=== PATIENT | female | born 1970 | race Asian ===

== ENCOUNTER 2018-05-06 17:26 | Observation (INO) ==
--- NOTE | 2018-05-06 18:00 | ED ---
HPI General Chief Complaint: Chest Pain Stated Complaint: Chest pain Time Seen by Provider: 05/06/18 18:01 Source: patient Mode of arrival: EMS Limitations: language barrier History of Present Illness HPI narrative: Mandarin speaking patient, apparently during while he was at work she started to feel her heart beating very fast and then she started to feel numbness to her legs and dizziness. She also started to complain of pain to both of her ankles as well as this midsternal chest pain this all started approximately 45 minutes prior to arrival and at best rates it a 7 out of 10 originally currently is down to 2 or 3 out of 10 the patient took aspirin to 81 mg prior to arrival. Difficult to obtain full history due to patient's language barrier despite using [employer] is very difficult to get a straight answer such as when asking about past medical history patient starts talking all about her current history and not talking about any previous past medical history is past surgical history. So my past medical history and past surgical history is incomplete due to poor translation and poor understanding on the patient's part MD complaint: chest pain Related Data Home Medications Medication Instructions Recorded Confirmed aspirin 162 mg PO DAILY 05/06/18 05/06/18 Allergies Allergy/AdvReac Type Severity Reaction Status Date / Time No Known Allergies Allergy Verified 05/06/18 17:39 Review of Systems ROS: all other systems reviewed are negative PMFSH History History Provided By: Patient and Family Member Medical History Medical History Ankle pain, chronic (Acute) Surgical history unknown (Acute) Poor circulation (Acute) Social History Social History Substance History: No History of Abuse Second Hand Smoke Exposure: No Smoking Status: Never smoker How Often Do You Have a Drink Containing Alcohol: Monthly or less Recent Travel in [facility] within the Last 8 Weeks: No Recent Out of Country Travel within the Last 8 Weeks: No Immunization History Tetanus Immunization: Unsure Hx Influenza Vaccine This Season: No Exam Narrative Exam Narrative: GENERAL: Well-nourished, well-developed patient in no apparent distress. SKIN: Warm and dry. HEAD: Atraumatic. Normocephalic. EYES: Pupils equal and round. No scleral icterus. No injection or drainage. ENT: No nasal bleeding or discharge. Mucous membranes pink and moist. NECK: Trachea midline. No JVD. CARDIOVASCULAR: Regular rate and rhythm. no rubs or gallops RESPIRATORY: No accessory muscle use. Clear to auscultation. Breath sounds equal bilaterally. GASTROINTESTINAL: Abdomen soft, non-tender, nondistended. No rebound or guarding MUSCULOSKELETAL: Extremities without clubbing, cyanosis, or edema. No obvious deformities. NEUROLOGICAL: Awake and alert. No obvious cranial nerve deficits. Motor grossly within normal limits. Five out of 5 muscle strength in the arms and legs. Normal speech. PSYCHIATRIC: Appropriate mood and affect; insight and judgment normal. Course Initial Documented Vital Signs Temperature 98.0 F 05/06/18 17:31 Pulse Rate 96 H 05/06/18 17:31 Respiratory Rate 20 05/06/18 17:31 Blood Pressure 127/73 05/06/18 17:31 Pulse Oximetry 100 05/06/18 17:31 Last Documented Vital Signs Temperature 98 F 05/06/18 17:37 Pulse Rate 80 05/06/18 17:37 Respiratory Rate 18 05/06/18 17:37 Blood Pressure 136/82 05/06/18 17:37 Pulse Oximetry 100 05/06/18 17:37 Medical Decision Making MDM Narrative Medical decision making narrative: Chest x-ray read by radiologist as negative First set of cardiac enzymes negative No leukocytosis no anemia no left shift Electrolytes are all within normal limits with the exception of mild hypokalemia 3.1 Normal liver and pancreatic functions Ultrasound of bilateral lower extremities are negative for DVT Medical Screen Exam Complete: Yes Emergency Medical Condition: Yes Differential Diagnosis Differential Diagnosis: GA versus pulmonary edema versus pulmonary embolus versus pericardial effusion versus DVT Medical Records Medical records reviewed: Yes I reviewed the patient's medical records. Lab Data Lab results reviewed: Yes I reviewed the patient's lab results. Result diagrams: 05/06/18 18:05/06/18 18:08 Lab Results 05/06/18 05/06/18 05/06/18 Range/Units 18:08 18:08 18:08 WBC 4.8 (4.0-11.0) th/mm3 RBC 4.23 (4.00-5.30) mil/mm3 Hgb 13.0 (11.6-15.3) gm/dL Hct 39.1 (35.0-46.0) % MCV 92.3 (80.0-100.0) fL MCH 30.6 (27.0-34.0) pg MCHC 33.2 (32.0-36.0) % RDW 13.4 (11.6-17.2) % Plt Count 163 (150-450) th/mm3 MPV 10.4 (7.0-11.0) fL Neut % (Auto) 55.5 (16.0-70.0) % Lymph % (Auto) 36.2 (9.0-44.0) % Schley % (Auto) 7.5 (0.0-8.0) % Eos % (Auto) 0.5 (0.0-4.0) % Baso % (Auto) 0.3 (0.0-2.0) % Neut # (Auto) 2.7 (1.8-7.7) th/mm3 Lymph # (Auto) 1.7 (1.0-4.8) th/mm3 Schley # (Auto) 0.4 (0.0-0.9) th/mm3 Eos # (Auto) 0.0 (0.0-0.4) th/mm3 Baso # (Auto) 0.0 (0.0-0.2) th/mm3 WBC Differential . Differential Comment Auto diff final Sodium 141 (136-145) meq/L Potassium 3.1 L (3.5-5.1) meq/L Chloride 108 H (98-107) meq/L Carbon Dioxide 20.5 L (21.0-32.0) meq/L Anion Gap 13 (5-15) meq/L BUN 12 (7-18) mg/dL Creatinine 0.75 (0.50-1.00) mg/dL Estimated GFR 82 L (>89) mL/min Random Glucose 106 (74-106) mg/dL Calcium 8.4 L (8.5-10.1) mg/dL Total Bilirubin 0.7 (0.2-1.0) mg/dL AST 17 (15-37) U/L ALT 22 (10-53) U/L Alkaline Phosphatase 46 (45-117) U/L Total Creatine Kinase 128 (26-192) U/L CK-MB (CK-2) 1.2 (0.5-3.6) ng/mL Troponin I Less than 0.02 L (0.02-0.05) ng/mL B-Natriuretic Peptide 19 (0-100) pg/mL Total Protein 7.4 (6.4-8.2) g/dL Albumin 3.9 (3.4-5.0) g/dL Lipase 68 L (73-393) U/L Imaging Data Radiologist's impression: Chest X-Ray 05/06/18 18:01 CONCLUSION: The lungs are clear. ECG Data EKG Prior to Arrival: No Attestation: I personally reviewed and interpreted this ECG as follows: Prior ECG tracings: not available for review Interpretation: Although the patient was seen in February 2018 I am unable to bring up and visualize her previous EKG, I was able to see her previous stress test and echocardiogram both of which were negative/within normal limits. Discharge Plan Discharge Disposition Patient Disposition: 30 Still Patient Discharge Condition Condition: Fair Discharge Details Diagnosis: Chest pain Physicians Team ED Provider: Roldan Burch Primary Care Provider: UNKNOWN, Rxs /Orders / Referrals /Forms Prescriptions: No Action aspirin 81 mg Tablet,Chewable 162 mg PO DAILY RF: 0 Discharge Interventions Interventions: Vital Signs Last Done: 05/06/18 17:37 Status ED Status: With Doctor
[2018-05-06 18:24] LABS: Baso % (Auto) 0.3 % (0.0-2.0); Eos % (Auto) 0.5 % (0.0-4.0); Hematocrit 39.1 % (35.0-46.0); Lymph # (Auto) 1.7 th/mm3 (1.0-4.8); Lymph % (Auto) 36.2 % (9.0-44.0); Mean Corpuscular HGB Conc 33.2 % (32.0-36.0); Mean Corpuscular Hemoglobin 30.6 pg (27.0-34.0); Mean Corpuscular Volume 92.3 fL (80.0-100.0); Mean Platelet Volume 10.4 fL (7.0-11.0); Mono # (Auto) 0.4 th/mm3 (0.0-0.9); Mono % (Auto) 7.5 % (0.0-8.0); Neut # (Auto) 2.7 th/mm3 (1.8-7.7); Neut % (Auto) 55.5 % (16.0-70.0); Platelet Count 163 th/mm3 (150-450); Red Blood Count 4.23 mil/mm3 (4.00-5.30); Red Cell Distribution Width 13.4 % (11.6-17.2); White Blood Count 4.8 th/mm3 (4.0-11.0)
--- NOTE | 2018-05-06 18:37 | XR ---
EXAM DATE: 05/06/2018 6:01 PM EDT AGE/SEX: 47 years / Female INDICATIONS: Short of breath. CLINICAL DATA: This is the patient's initial encounter. Patient reports that signs and symptoms have been present for 2 months and indicates a pain score of 0/10. MEDICAL/SURGICAL HISTORY: None. None. COMPARISON: [facility] [place] & LAT, 02/27/2016. . FINDINGS: A single AP view of the chest demonstrates the lungs to be symmetrically aerated without evidence of mass, infiltrate or effusion. The cardiomediastinal contours are unremarkable. Osseous structures a re intact. CONCLUSION: The lungs are clear. Electronically signed by: Eloy Mckeon MD 05/06/2018 6:36 PM EDT
[2018-05-06 18:44] LABS: Alanine Aminotransferase 22 U/L (10-53); Albumin 3.9 g/dL (3.4-5.0); Anion Gap 13 meq/L (5-15); Aspartate Aminotransferase 17 U/L (15-37); Blood Urea Nitrogen 12 mg/dL (7-18); Calcium 8.4 mg/dL (8.5-10.1); Carbon Dioxide 20.5 meq/L (21.0-32.0); Chloride 108 meq/L (98-107); Glomerular Filtration Rate 82 mL/min (>89); Glucose,Random 106 mg/dL (74-106); Lipase 68 U/L (73-393); Potassium 3.1 meq/L (3.5-5.1); Sodium 141 meq/L (136-145)
[2018-05-06 18:49] LABS: Alkaline Phosphatase 46 U/L (45-117); Creatine Kinase 128 U/L (26-192); Total Protein 7.4 g/dL (6.4-8.2)
[2018-05-06 19:01] LABS: Creatine Kinase MB 1.2 ng/mL (0.5-3.6)
[2018-05-06] MEDS ORDERED: Morphine Inj 4 MG/ML Vial IV.PUSH PRN (19:15)
--- NOTE | 2018-05-06 19:20 | US ---
EXAM DATE: 05/06/2018 6:01 PM EDT AGE/SEX: 47 years / Female INDICATIONS: Bilateral leg swelling. CLINICAL DATA: This is the patient's initial encounter. Patient reports that signs and symptoms have been present for 1 day and indicates a pain score of 5/10. MEDICAL/SURGICAL HISTORY: . Ankle pain. None. COMPARISON: No prior exams available for comparison. TECHNIQUE: Venous ultrasound of both lower extremities was performed from the inguinal ligament to t he proximal calf. Real-time, color Doppler and spectral tracing, compression and augmentation techni ques were used. FINDINGS: Right Leg: Normal compression of the deep venous system from the inguinal region to the proximal jose alfredo f. No echogenic clot is seen. Normal response of the venous system to augmentation and respiration. Left Leg: Normal compression of the deep venous system from the inguinal region to the proximal calf . No echogenic clot is seen. Normal response of the venous system to augmentation and respiration. Other: None. CONCLUSION: 1. The study is negative for bilateral lower extremity deep venous thrombosis. Electronically signed by: Eloy Mckeon MD 05/06/2018 7:19 PM EDT
[2018-05-06 20:01] LABS: Bilirubin,Urine Negative (Negative); Clarity,Urine Clear (Clear); Color,Urine Straw (Yellw/Straw); Glucose,Urine (UA) Negative (Negative); Leukocyte Esterase,Urine Negative (Negative); Mucus,Urine Few /lpf (Occasional); Nitrite,Urine Negative (Negative); Specific Gravity,Urine 1.005 (1.002-1.035); Squamous Epithelial Cell,Urine 1 /hpf (0-5)
[2018-05-06 20:05] LABS: Amphetamine Screen,Urine Neg (Neg); Barbiturate Screen,Urine Neg (Neg); Cannabinoid Screen,Urine Neg (Neg); Cocaine Screen,Urine Neg (Neg); Opiate Screen,Urine Neg (Neg)
[2018-05-06] MEDS: Famotidine 20 MG Tablet PO SCH (21:44)
[2018-05-06] MEDS: Sod Chloride 0.9% Inj 1,000 ML IV.CONT SCH (21:56)
[2018-05-06 22:09] LABS: Troponin I 0.02 ng/mL (0.02-0.05)
--- NOTE | 2018-05-06 22:16 | CT ---
EXAM DATE: 05/06/2018 8:39 PM EDT AGE/SEX: 47 years / Female INDICATIONS: Midsternal chest pain. CLINICAL DATA: This is the patient's initial encounter. Patient reports that signs and symptoms have been present for 1 day and indicates a pain score of 4/10. MEDICAL/SURGICAL HISTORY: None. None. RADIATION DOSE: 11.78 CTDI (mGy) COMPARISON: No prior exams available for comparison. TECHNIQUE: Volumetric scanning was performed using a multi-row detector CT scanner during bolus infu radha of 75 ml Omnipaque 350 (iohexol) nonionic water-soluble contrast as a single exam dose. The ann a was post processed with a variety of visualization algorithms including full volume maximum intensi ty projection and sliding thin slab reformation. Using automated exposure control and adjustment of t he mA and/or kV according to patient size, radiation dose was kept as low as reasonably achievable to obtain optimal diagnostic quality images. DICOM format image data is available electronically for r eview and comparison. FINDINGS: Pulmonary Arteries: No filling defects are seen in the pulmonary arteries out to the subsegmental ve ssels. The left and right pulmonary arteries are normal in diameter. Lung: No infiltrates seen. Effusion: None. Mediastinum: No evidence of mediastinal or hilar adenopathy. Other: The axilla is unremarkable. CONCLUSION: 1. The study is negative for pulmonary embolism. Electronically signed by: Eloy Mckeon MD 05/06/2018 10:15 PM EDT
--- NOTE | 2018-05-06 22:21 | ECG ---
Date Performed: 05/06/2018 Time Performed: 20:37:53 PTAGE: 47 years EKG: Sinus rhythm NORMAL ECG PREVIOUS TRACING : 05/06/2018 17.34 Since the previous tracing, no significant change noted DOCTOR: Edgar Corral Interpretating Date/Time 05/06/2018 22:20:12
--- NOTE | 2018-05-06 22:30 | ECG ---
Date Performed: 05/06/2018 Time Performed: 17:34:18 PTAGE: 47 years EKG: Sinus rhythm POSSIBLE INFERIOR MYOCARDIAL INFARCTION BORDERLINE ECG PREVIOUS TRACING : 02/27/2016 23.19 Since the previous tracing, no significant change noted DOCTOR: Edgar Corral Interpretating Date/Time 05/06/2018 22:29:12
[2018-05-07 00:31] VITALS: O2SAT 99
[2018-05-07 01:22] LABS: Creatine Kinase 91 U/L (26-192)
[2018-05-07] MEDS: Sod Chloride 0.9% Inj 1,000 ML IV.CONT SCH (06:29)
[2018-05-07 07:33] VITALS: RESP 20
[2018-05-07] MEDS: Famotidine 20 MG Tablet PO SCH (08:15)
--- NOTE | 2018-05-07 08:53 | P.HPCA ---
History of Present Illness Primary Care Physician: UNKNOWN Chief Complaint: Palpations History of Present Illness: 47 year old Mandarin speaking female presents to ER for further evaluation of palpations. Onset yesterday afternoon. Describes sensation of irregular, fast heart beat with associated shortness of breath and dizziness. Duration 30-60 minutes. No chest discomfort. Denies similar sensation in the past. No known hypertension, hyperlipidemia, coronary artery disease, or diabetes. No nausea, vomiting, or diaphoresis. No recent illness, fever, or injury. Past cardiac testing 02/28/16 ETT-felt to be non-ischemic, walked 2:12 minutes. Social history No known hypertension, hyperlipidemia, or diabetes. Lifelong non-smoker. No alcohol or drug use. Family history Noncontributory for early onset cardiovascular disease - Diagnosis (1) Palpitations (2) Hypokalemia Review of Systems All other systems reviewed negative except as stated in HPI [facility] [place] - History History Provided By: Patient, Family Member - Medical History Medical History: Medical History (Last Reviewed 05/06/18 @ 18:28 by Roldan Burch) Ankle pain, chronic Surgical history unknown - Tobacco History Second Hand Smoke Exposure: No Tobacco Use In Past 30 Days: No Smoking Status: Never smoker - Alcohol History How Often Do You Have a Drink Containing Alcohol: Monthly or less - Substance Use History Substance History: No History of Abuse - Travel History Recent Travel in the [place] Within the Last 8 Weeks: No Recent Travel Out of the Country Within the Last 8 Weeks: No - Immunization History Tetanus Immunization: Unsure Hx Influenza Vaccine This Season: No Medications and Allergies Active Medications: Active Medications Hydrocodone Bitart/Acetaminophen ([place] 7.5/325) 1 tab PO Q4H PRN PRN Reason: PAIN SCALE 1 TO 7 Famotidine (Pepcid) 20 mg PO BID [facility] Last Admin: 05/07/18 08:15 Dose: 20 mg Sodium Chloride (Ns Inj) 1,000 mls @ 100 mls/hr IV.CONT .Q10H [facility] Last Admin: 05/07/18 06:29 Dose: 100 mls/hr Morphine Sulfate (Morphine Inj) 2 mg IV.PUSH Q4H PRN PRN Reason: PAIN SCALE 8 TO 10 Nitroglycerin (Nitrostat Sl) 0.4 mg SL Q5M PRN PRN Reason: CHEST PAIN Ondansetron HCl (Zofran Inj) 4 mg IV.PUSH Q6H PRN PRN Reason: NAUSEA Sodium Chloride (Ns Flush) 2 ml IV.FLUSH UNSCH PRN PRN Reason: FLUSH AFTER USING IV ACCESS Sodium Chloride (Ns Flush) 2 ml IV.FLUSH BID [facility] Last Admin: 05/07/18 08:18 Dose: Not Given Sodium Chloride (Ns Flush) 2 ml IV.FLUSH PRN PRN PRN Reason: FLUSH AFTER USING IV ACCESS Allergies Allergy/AdvReac Type Severity Reaction Status Date / Time No Known Allergies Allergy Verified 05/06/18 17:39 Home Medications Medication Instructions Recorded Confirmed Type aspirin 162 mg PO DAILY 05/06/18 05/06/18 History Exam Vital signs: Vital Signs 05/06/18 17:31 05/06/18 17:37 05/06/18 19:18 Temperature 98.0 F 98 F Pulse Rate 96 H 80 Respiratory Rate 20 18 Blood Pressure 127/73 136/82 Pulse Oximetry 100 100 100 05/06/18 19:42 05/06/18 20:00 05/07/18 00:00 Temperature 98.0 F 97.9 F Pulse Rate 63 70 64 Respiratory Rate 15 16 16 Blood Pressure 115/68 110/67 116/67 Pulse Oximetry 96 99 99 05/07/18 04:00 05/07/18 07:30 Temperature 97.7 F 97.8 F Pulse Rate 63 62 Respiratory Rate 16 20 Blood Pressure 111/59 L 114/62 Pulse Oximetry 99 99 Intake & Output 05/06/18 05/07/18 05/07/18 18:59 06:59 18:59 Intake Total 1000 / 1000 Balance 1000 / 1000 Weight 65.771 kg 65.8 kg Intake: IV 1000 / 1000 NS Inj 1,000 ML @ 100 mls/hr IV 1000 / 1000 .CONT .Q10H [facility] Rx#:[id number] Narrative: GENERAL: Alert WN, WD, NAD, pleasant, female HEAD: NC, AT EYES: Sclera clear, conjunctiva without injection, pupils equal and round ENT: Mucous membranes pink and moist CV: RRR, without murmur, rub, gallop, no JVD, S1-S2 no S3-S4. No carotid bruits RESP: Clear lungs throughout bilateral, no crackles, wheeze, rhonchi, symmetrical chest rise, nonlabored, able to speak in full sentences ABD: Soft, NT, ND, no masses, positive bowel tones EXT: Pulses +2x4, no dependent edema MS: Normal tone x4 extremities, nontender, no obvious deformities, full range of motion NEURO: CN II through CN XII grossly intact, motor strength 5/5 PSYCH: A+O x3, pleasant affect, appropriate speech, mood, insight and judgment SKIN: Normal turgor, normal texture, no lesions, no rashes, brisk cap refill, even hair distribution, few scattered bilateral lower extremities small bruises Results 05/06/18 18:08 05/06/18 18:08 Cardiac Enzymes 05/06/18 05/06/18 05/06/18 Range/Units 18:08 18:08 20:30 AST 17 (15-37) U/L CK-MB (CK-2) 1.2 (0.5-3.6) ng/mL Troponin I Less than 0.02 L 0.02 (0.02-0.05) ng/mL B-Natriuretic Peptide 19 (0-100) pg/mL 05/07/18 Range/Units 00:40 AST (15-37) U/L CK-MB (CK-2) (0.5-3.6) ng/mL Troponin I Less than 0.02 L (0.02-0.05) ng/mL B-Natriuretic Peptide (0-100) pg/mL Coagulation 05/06/18 Range/Units 18:08 B-Natriuretic Peptide 19 (0-100) pg/mL CBC 05/06/18 Range/Units 18:08 WBC 4.8 (4.0-11.0) th/mm3 RBC 4.23 (4.00-5.30) mil/mm3 Hgb 13.0 (11.6-15.3) gm/dL Hct 39.1 (35.0-46.0) % Plt Count 163 (150-450) th/mm3 Neut # (Auto) 2.7 (1.8-7.7) th/mm3 Lymph # (Auto) 1.7 (1.0-4.8) th/mm3 Barnes # (Auto) 0.4 (0.0-0.9) th/mm3 Eos # (Auto) 0.0 (0.0-0.4) th/mm3 Baso # (Auto) 0.0 (0.0-0.2) th/mm3 Comprehensive Metabolic Panel 05/06/18 Range/Units 18:08 Sodium 141 (136-145) meq/L Potassium 3.1 L (3.5-5.1) meq/L Chloride 108 H (98-107) meq/L Carbon Dioxide 20.5 L (21.0-32.0) meq/L BUN 12 (7-18) mg/dL Creatinine 0.75 (0.50-1.00) mg/dL Calcium 8.4 L (8.5-10.1) mg/dL AST 17 (15-37) U/L ALT 22 (10-53) U/L Alkaline Phosphatase 46 (45-117) U/L Total Protein 7.4 (6.4-8.2) g/dL Albumin 3.9 (3.4-5.0) g/dL Intake and Output 05/06/18 05/07/18 05/07/18 22:59 06:59 14:59 Intake Total 1000 / 1000 Balance 1000 / 1000 Intake: IV 1000 / 1000 NS Inj 1,000 ML @ 100 mls/hr IV 1000 / 1000 .CONT .Q10H [facility] Rx#:[id number] Other: Weight 65.771 kg 65.8 kg - Imaging and Cardiology Imaging: Impressions Chest CTA 05/06/18 18:01 CONCLUSION: 1. The study is negative for pulmonary embolism. Chest X-Ray 05/06/18 18:01 CONCLUSION: The lungs are clear. Venous Doppler Study 05/06/18 18:01 CONCLUSION: 1. The study is negative for bilateral lower extremity deep venous thrombosis. EKG interpretations - EKG EKG results cardiology: sinus rhythm (1st EKG, nsr, minimal st depression inferior and anterior leads, 2nd/3rd EKG no st t changes) Caprini VTE Risk Assessment Caprini VTE Risk Assessment: No/Low Risk (score <= 1) Caprini Risk Assessment Model: Point Value = 1 Point Value = 2 Point Value = 3 Point Value = 5 Age 41-60 Minor surgery BMI > 25 kg/m2 Swollen legs Varicose veins or History of unexplained or recurrent spontaneous Oral contraceptives or hormone replacement Sepsis (< 1 month) Serious lung disease, including pneumonia (< 1 month) Abnormal pulmonary function Acute myocardial infarction Congestive heart failure (< 1 month) History of inflammatory bowel disease Medical patient at bed rest Age 61-74 Arthroscopic surgery Major open surgery (> 45 min) Laparoscopic surgery (> 45 min) Malignancy Confined to bed (> 72 hours) Immobilizing plaster cast Central venous access Age >= 75 History of VTE Family history of VTE Factor V Leiden Prothrombin [id number] Lupus anticoagulant Anticardiolipin antibodies Elevated serum homocysteine Heparin-induced thrombocytopenia Other congenital or acquired thrombophilia Stroke (< 1 month) Elective arthroplasty Hip, pelvis, or leg fracture Acute spinal cord injury (< 1 month) Prophylaxis Regimen: Total Risk Factor Score Risk Level Prophylaxis Regimen 0-1 Low Early ambulation 2 Moderate Order ONE of the following: *Sequential Compression Device (SCD) *Heparin 5000 units SQ BID 3-4 Higher Order ONE of the following medications: *Heparin 5000 units SQ TID *Enoxaparin/Lovenox 40 mg SQ daily (WT < 150 kg, CrCl > 30 mL/min) *Enoxaparin/Lovenox 30 mg SQ daily (WT < 150 kg, CrCl > 10-29 mL/min) *Enoxaparin/Lovenox 30 mg SQ BID (WT < 150 kg, CrCl > 30 mL/min) AND/OR *Sequential Compression Device (SCD) 5 or more Highest Order ONE of the following medications: *Heparin 5000 units SQ TID (Preferred with Epidurals) *Enoxaparin/Lovenox 40 mg SQ daily (WT < 150 kg, CrCl > 30 mL/min) *Enoxaparin/Lovenox 30 mg SQ daily (WT < 150 kg, CrCl > 10-29 mL/min) *Enoxaparin/Lovenox 30 mg SQ BID (WT < 150 kg, CrCl > 30 mL/min) AND *Sequential Compression Device (SCD) Assessment and Plan - Assessment (1) Palpitations Code(s): R00.2 - Palpitations Status: Acute Plan: Admitted to chest pain center. ACS ruled out 3 sets of EKGs and cardiac enzymes. Seen and evaluated by Dr. Moustapha Ace. Proceed EKG concerning for minimal ST depression, second and third EKGs no ST-T segment changes. Proceed with Lexiscan. Telemetry reviewed. (2) Hypokalemia Code(s): E87.6 - Hypokalemia Status: Acute Plan: 40 Meq KCL administered.
[2018-05-07 11:24] VITALS: BP 111/67; PULSE 60; TEMP 97.9
[2018-05-07] MEDS ORDERED: Regadenoson Inj 0.4 MG/5 ML Syringe IV.PUSH ONE (12:51)
--- NOTE | 2018-05-07 13:49 | NM ---
EXAM DATE: 05/07/2018 12:26 PM EDT AGE/SEX: 47 years / Female INDICATIONS:Angina. . Midsternal chest pain. CLINICAL DATA: This is the patient's initial encounter. Patient reports that signs and symptoms have been present for 1 day and indicates a pain score of 7/10. MEDICAL/SURGICAL HISTORY: None. None. COMPARISON: No prior exams available for comparison. DOSE: 8.8 mCi Tc 99m Myoview at rest 27.2 mCi [id number] at stress 0.4 mg Lexiscan STRESS SYMPTOMS: Heart racing. EJECTION FRACTION: >70 % TECHNIQUE: The patient underwent pharmacologic stress with infusion of prescribed dose. Continuous ECG tracing was monitored during stress. Gated SPECT imaging was performed after stress and conventi onal SPECT imaging was performed at rest. The examination was performed on a SPECT/CT scanner, both attenuation and non-corrected datasets were reviewed. FINDINGS: Distribution: The maximum perfused segment at stress is in the anterior lateral wall. Perfusion Study: The pattern of perfusion at stress is within normal limits. No fixed or reversible perfusion defect is identified. Gated Study: There are intact wall motion and wall thickening without hypokinetic or dyskinetic segm ents. The ejection fraction is calculated at >70%. RISK CATEGORY: Low (<1% Annual Motality Rate) CONCLUSION: 1. Left ventricle perfusion is within normal limits. No fixed or reversible perfusion defect is iden tified. 2. Normal left ventricle wall motion and ejection fraction. Electronically signed by: Maury Mayer MD 05/07/2018 1:48 PM EDT
--- NOTE | 2018-05-07 15:18 | ECG ---
Date Performed: 05/07/2018 Time Performed: 00:34:47 PTAGE: 47 years EKG: Sinus rhythm NORMAL ECG PREVIOUS TRACING : 05/06/2018 20.37 Since previous tracing, no significant change noted DOCTOR: Moustapha Ace Interpretating Date/Time 05/07/2018 15:18:01
--- NOTE | 2018-05-07 15:27 | TR ---
Date Performed: 05/07/2018 Time Performed: 12:49:34 DOCTOR: Moustapha Ace DRUG LIST: CLINICAL HISTORY: REASON FOR TEST: REASON FOR ENDING: OBSERVATION: CONCLUSION: COMMENTS: Lexiscan stress test was performed under standard four minute protocol. Radionuclide was injected one minute prior to ending the test. No electrocardiographic abormalities were present t o suggest ischemia. Nuclear imaging and interpretation are pending.
== END 2018-05-07 15:39 | disposition home or self-care (01) ==
LOC: NEDA 17:26 → NEPE 17:26 → NEPHCDU 20:11
PROVIDERS: ADMIT Internal Medicine Interventional Cardiology; ATTEND Internal Medicine Interventional Cardiology